=== PATIENT | male | born 1935 | race African-American/Black ===

== ENCOUNTER 2019-04-16 14:29 | Emergency (ER) | payer MEDICARE, OTHER ==
[~2019-04-16] VITALS: Ht 175.3 cm; Wt 82.0 kg
[2019-04-16 14:50] VITALS: BP 105/75
[2019-04-16] MEDS ORDERED: METF-815 PO (14:58)
[2019-04-16] MEDS ORDERED: ATOR40TA70 PO (14:58)
[2019-04-16] MEDS ORDERED: ALOGLIPTIN (14:58)
[2019-04-16] MEDS ORDERED: AMLO10TA80 PO (14:58)
[2019-04-16] MEDS ORDERED: TETANUS, DIPHTHERIA, PERTUSSIS VAC/PF 0.5ML (>7YR OLD) IM ONE (18:30)
== END 2019-04-16 19:12 | disposition home or self-care (01) ==
LOC: ER 14:29
DX: S81.852A Open bite, left lower leg, initial encounter (principal); E11.9 Type 2 diabetes mellitus without complications; I10 Essential (primary) hypertension; Z79.899 Other long term (current) drug therapy; W54.0XXA Bitten by dog, initial encounter; Y93.89 Activity, other specified; Y92.89 Other specified places as the place of occurrence of the external cause; Y99.8 Other external cause status
CPT/HCPCS: 90471; 90715; 99283